=== PATIENT | female | born 1990 | race Caucasian/White ===

== ENCOUNTER 2018-12-19 11:56 | Inpatient (IN) ==
[2018-12-19] MEDS ORDERED: Ringers Solution, Lactated 2,000 ML ONE (13:04)
[2018-12-19] MEDS ORDERED: Naloxone 0.4 MG/ML INJ IVP PRN ×2 (13:16→18:15)
[2018-12-19] MEDS ORDERED: CeFAZolin Premix DUPLEX 2,000 MG/50 ML BAG IVPB ONE (13:16)
[2018-12-19] MEDS ORDERED: Famotidine 20 MG/2 ML VIAL IVP ONE (13:16)
[2018-12-19] MEDS ORDERED: Ringers Solution, Lactated 1,000 ML IVC ONE (13:16)
[2018-12-19] MEDS ORDERED: Oxytocin 20 units/ LR 1000 mL 20 UNIT/1,000 ML BAG IVC ONE (13:16)
[2018-12-19] MEDS ORDERED: Metoclopramide 10 MG/2 ML VIAL IVP ONE (13:16)
[2018-12-19] MEDS ORDERED: Famotidine 20 MG/2 ML VIAL IVP PRN (13:16)
[2018-12-19] MEDS ORDERED: Propofol 500 MG/50 ML INFUS..BTL ONE (13:19)
[2018-12-19] MEDS ORDERED: *HR* Morphine Sulfate/PF 10 MG/10 ML AMPUL ONE (13:25)
[2018-12-19] MEDS ORDERED: *HR* FentaNYL (PF) 100 MCG/2 ML VIAL ONE (13:25)
[2018-12-19] MEDS ORDERED: Lidocaine -MPF 1% 5 ML AMPUL ONE (13:28)
[2018-12-19] MEDS ORDERED: Bupivacaine/PF 0.75% in Dex 2 ML AMPUL INFILT ONE (13:28)
[2018-12-19] MEDS ORDERED: Ringers Solution, Lactated 1,000 ML IVC SCH ×2 (13:30→18:15)
[2018-12-19] MEDS ORDERED: Oxytocin 20 units/ LR 1000 mL 20 UNIT/1,000 ML BAG IVC SCH ×2 (13:30→18:15)
--- NOTE | 2018-12-19 13:37 | Anesthesia Evaluation PreOp ---
Date of Encounter: 12/19/18 Time of Encounter: 13:26 - Past History Planned Operation: G1 Cardiac History: Denies any Significant Hx Pulmonary History: Denies Any Significant HX GEARMAN History: Denies Any Significant HX Other Medical History: Other (MO, GASTRIC SLEEVE IN PAST LOST >250BLS) Anesthesia History: No Prior Anesthetic Complications, Past Anesthesia Alcohol Use: none Drug use: none Medications and Allergies Pnv95/Ferrous Fumarate/FA [ Formula] 1 each PO DAILY #30 tablet 05/16/18 [Rx] Acetaminophen [Tylenol] 500 mg PO BID 11/06/18 [History] Ondansetron HCl [Zofran] 4 mg PO Q8HR PRN 11/06/18 [History] Allergy/AdvReac Type Severity Reaction Status Date / Time latex Allergy Rash Verified 09/29/18 15:32 Sulfa (Sulfonamide Allergy Rash Verified 09/29/18 15:32 Antibiotics) tetracycline [Tetracycline] Allergy Hives Verified 09/29/18 15:32 codeine AdvReac Swelling Verified 09/29/18 15:32 of the Eye Anesthesia Exam - HEENT Pupil (Motor): Pupils equal Mallampati: II Teeth: Normal Oral Opening: Greater than 3 - GEARMAN LOC: Oriented GEARMAN Motor: Normal RUE, Normal LUE, Normal RLE, Normal LLE, Normal Face GEARMAN Sensory: Normal: RUE, LUE, RLE, LLE, Face - Cardiac Rhythm: Regular Murmur: None - Pulmonary Breath Sounds: bilateral Clear Respiratory Effort: Symmetrical Anesthesia Assess/Plan ASA Score: 2 Level of consciousness: Cooperative, Oriented Anesthetic Plan: General, Spinal, Epidural Monitoring Plan: Standard Monitors Recovery Plan: PACU
[2018-12-19 13:45] LABS: Basophils % 0.1 %; Eosinophils % 0.3 %; Hematocrit 41.6 % (35.3-44.9); Hemoglobin 13.9 g/dL (11.5-15.4); Immature Granulocytes % 0.5 % (0-4); Lymphocytes % 15.2 %; Mean Corpuscular HGB Conc 33.4 g/dL (31.6-35.5); Mean Corpuscular Hemoglobin 31.2 pg (28.0-33.3); Mean Corpuscular Volume 93.3 fL (83.0-100.0); Monocytes # 0.6 K/mcL (0.0-1.3); Monocytes % 4.2 %; Neutrophils # 10.7 K/mcL (1.6-8.9); Platelet Count 156 K/mcL (140-400); Red Blood Count 4.46 M/mcL (3.82-4.97); Red Cell Distribution Width 12.2 % (11.5-14.5); Segmented Neutrophils % 79.7 %
[2018-12-19] MEDS ORDERED: *HR* Oxytocin 10 UNIT/ML VIAL IM ONE ×2 (13:47→14:14)
[2018-12-19] MEDS ORDERED: *HR* Succinylcholine 200 MG/10 ML VIAL IVP ONE (14:07)
[2018-12-19] MEDS ORDERED: Ringers Solution, Lactated 1,000 ML ONE (14:14)
--- NOTE | 2018-12-19 15:32 | OB/GYN History & Physical ---
Date of Encounter: 12/19/18 Time of Encounter: 15:28 Assessment and Plan (1) 37 weeks gestation of Current visit: Yes Status: Acute Patient's 37 weeks with oligo dimness seen in office nonstress testing however prolonged deceleration lasting approximate 4 minutes to the 80s. She was sent to labor and delivery however prior to starting any medications to cause contractions she was again having decelerations therefore decision was m marc to proceed with section she is aware operative risks and signed appropriate consent. (2) Oligohydramnios Current visit: Yes Status: Acute Patient with oligomenorrhea in etiology she had questionable leakage fluid sugg estive morning has been wearing a pad however on sterile speculum exam showed postdates she did not see pulling it was nitrazine positive but fern negative. Qualifiers: Trimester: third trimester Qualified Code(s): O41.03X0 - Oligohydramnios, t hird trimester, not applicable or unspecified (3) heart rate decelerations affecting management of mother Current visit: Yes Status: Acute History of Present Illness Chief complaint: Oligohydramnios, decelerations HPI: Ms. Lora is a 28 year old female female at 37w2d gestation presents to labor and delivery today after being seen in office and found to have prolonged deceleration on nonstress testing ultrasound showed PRANAV of 4.7 cm was umbilicus and removed decision made with induction of labor. She is brought to labor and delivery or during routine monitoring she begin having recurrent prolonged decelerations. She was not on any medications cervix is unfavorable and after discussed with patient options decision was made to proceed with section. She is aware operative risks and signed appropriate consent. Past Med Surg Social Fam HX - Past Medical History Source: patient, old records reviewed Medical history: asthma, migraine, other Additional medical history: Hemiplegic Migraines Psychiatric history: anxiety, bipolar, depression - Past Surgical History Additional surgical history: gastric sleeve 06/2016. 06/2010 left leg surgery - Social History Smoking Status: Never smoker Smokeless Tobacco Status: No Alcohol use: none Drug use: none - Family History Mother Living Status: Still Living Hx Family Cardiac Disorders: Yes (HTN) Hx Family Respiratory Disorders: No Hx Family Cancer: Yes (skin) Hx Family GI Disorders: No Hx Family Endocrine Disorder: No Hx Family Neuromuscular Disorders: No Hx Family Neurologic Disorders: No Hx Family HEENT Disorders: No Hx Family Autoimmune Disorders: No Obstetrical History - Pregnancies : 1 Medications and Allergies Pnv95/Ferrous Fumarate/FA [ Formula] 1 each PO DAILY #30 tablet 05/16/18 [Rx] Acetaminophen [Tylenol] 500 mg PO BID 11/06/18 [History] Ondansetron HCl [Zofran] 4 mg PO Q8HR PRN 11/06/18 [History] Allergy/AdvReac Type Severity Reaction Status Date / Time latex Allergy Rash Verified 09/29/18 15:32 Sulfa (Sulfonamide Allergy Rash Verified 09/29/18 15:32 Antibiotics) tetracycline [Tetracycline] Allergy Hives Verified 09/29/18 15:32 codeine AdvReac Swelling Verified 09/29/18 15:32 of the Eye Exam - Constitutional Constitutional: well developed, well nourished - HEENT HEENT: EOMI, PERRL - Neck Neck exam: full ROM - Lungs Respiratory exam: CTAB - Cardiovascular Cardiovascular exam: RRR - Abdomen Abdomen: Present: gravid - Extremities Extremities exam: full ROM Deep Tendon Reflex Grade: 2+ Normal - Cervix Dilation: 2 Effacement: 80 Station: -2 - Uterus Uterus exam: Present: enlarged Results Result Diagrams: 12/19/18 13:02 Abnormal lab results WBC 13.4 K/mcL (4.3-11.1) H 12/19/18 13:02 Neutrophils # 10.7 K/mcL (1.6-8.9) H 12/19/18 13:02 All other labs normal. - VTE Reasons for not Prescribing Prophylaxis: Treatment not Indicated - Low risk for VTE
--- NOTE | 2018-12-19 15:43 | OB/GYN Procedure Note ---
Section - Date of procedure: 12/19/18 Preop diagnosis: category 2 FHT tracing, other (Oligohydramnios desires primary section secondary to nonreassuring heart rate tracing) Post-op diagnosis: same Procedure: section, primary low transverse Surgeon: Sriram Valdivia Blood Loss: 400 Was there an assistant operator present: No Anesthesiologist: Mane Nichols Worm Farmer: Titi Elaine Anesthesia Type: Spinal Disposition: L&D Recovery Room Specimens: Placenta - Infant (s) A Delivery Date: 12/19/18 Infant Delivery Time: 14:05 Presentation: vertex Gender: Male Viability: Viable Pounds: 7 Ounces: 9 at 1 minute: 8 at 5 minutes: 8 Shoulder Dystocia: not encountered Specimens collected: cord blood Placenta: spontaneous Cord: 3 umbilical vessels - Narrative Narrative: Patient was taken operating room where spinal anesthesia was administered. She was prepped draped in usual sterile fashion. Bladder was drained of clear urine. Scalp was used to make Pfannenstiel skin incision which was sharply taken down the rectus fascia. Fascia was incised midline fascial incision was extended bilaterally. Plane is developed between rectus muscle rectus fascia superiorly and distally. Peritoneum was entered bluntly. Bladder blade was placed and bladder flap was developed on the left lower uterine segment. Scalpel was used to make a low transverse uterine incision uterus was entered bluntly and infant was delivered from vertex presentation. There was small amount of clear fluid noted. Cord was clamped cut and was handed nurse personnel who were in attendance where weight was found to be 7 lbs. 9 oz. and Apgars were 8 at 1 minute and 8 at 5 minutes. Placenta spontaneously were normal placenta with three-vessel cord. Uterus was massaged to firm. Uterus was closed 0 Vicryl in running lock stitch. Additional performed hemostasis was ensured. Fascia was closed 0 Vicryl running manner. Again irrigation performed hemostasis was ensured. Skin edges reapproximated with 4-0 Vicryl. All sponge and instruments counts are correct patient was taken recovery in good condition.
[2018-12-19] MEDS ORDERED: *HR* Nalbuphine 10 MG/ML AMPUL IV STA (17:43)
[2018-12-19] MEDS ORDERED: Acetaminophen IV 1,000 MG/100 ML INFUS..BTL IVPB SCH (18:00)
[2018-12-19] MEDS ORDERED: Ibuprofen 600 MG TABLET PO PRN (18:15)
[2018-12-19] MEDS ORDERED: Simethicone 80 MG TAB.CHEW PO PRN (18:15)
[2018-12-19] MEDS ORDERED: Metoclopramide 10 MG/2 ML VIAL IVP PRN (18:15)
[2018-12-19] MEDS ORDERED: Sennosides 8.6 MG TABLET PO PRN (18:15)
[2018-12-19] MEDS ORDERED: Rho Immune Globulin 1,500 UNIT SYRINGE IM ONE (18:15)
--- NOTE | 2018-12-19 22:33 | Anesthesia Evaluation Post Op ---
Date of Encounter: 12/19/18 Time of Encounter: 22:32 - Vital Signs Vital Signs: Vital Signs/O2 Sat, Most Current Temp Pulse Resp BP Pulse Ox 98.6 F 62 16 116/60 99 12/19/18 20:50 12/19/18 20:50 12/19/18 20:50 12/19/18 20:50 12/19/18 20:50 - Lungs Lungs: Clear Ascult./Percussion - Airway Airway: Non-obstructed - Cardiovascular Regular Rate - Mental Status Mental Status: Alert & Oriented, Answers Appropriately - Pain Pain Scale: 6 (being treated with pain medication) - Nausea Vomiting Nausea Vomiting: Not Present - Hydration Hydration: Tolerates oral liquids, Mendes catheter - Discharge PostOp Status: Transfer Patient to floor
[2018-12-20] MEDS: Acetaminophen 325 MG TABLET PO PRN ×2 (02:03→11:52)
[2018-12-20 03:58] LABS: Basophils % 0.2 %; Eosinophils # 0.1 K/mcL (0.0-0.6); Eosinophils % 0.5 %; Hematocrit 33.4 % (35.3-44.9); Immature Granulocytes % 0.4 % (0-4); Lymphocytes # 1.4 K/mcL (0.6-4.6); Lymphocytes % 12.5 %; Mean Corpuscular HGB Conc 34.4 g/dL (31.6-35.5); Mean Platelet Volume 11.2 fL (9.4-12.4); Monocytes # 0.5 K/mcL (0.0-1.3); Neutrophils # 9.5 K/mcL (1.6-8.9); Platelet Count 113 K/mcL (140-400); Red Blood Count 3.71 M/mcL (3.82-4.97); Red Cell Distribution Width 12.3 % (11.5-14.5); Segmented Neutrophils % 82.4 %
[2018-12-20 04:00] LABS: Hemoglobin 11.5 g/dL (11.5-15.4)
[2018-12-20] MEDS: *HR* OxyCODONE/APAP 5/325 TABLET PO PRN ×2 (08:52→17:07)
--- NOTE | 2018-12-20 09:10 | OB/GYN Progress Note ---
Date of Encounter: 12/20/18 Time of Encounter: 09:07 - Assessment and Plan (1) S/P section Current Visit: Yes Status: Acute Mendes removed this am. Pt unable to void. She tolerated sitting on side of bed but became dizzy with loss of vision and hearing upon standing. This has now occurred twice. Her lochia is absent at this time. Fundus 2 above. Stat CBC and chem ordered. Will consider pelvic exam if H&H dropping. (2) Dizziness Current Visit: Yes Status: Acute (3) Breast feeding status of mother Current Visit: Yes Status: Acute Subjective - Subjective Patient reports: dizzy ambulation, pain well controlled, appetite poor, no voiding normally, no nauseated : doing well Objective - Vital Signs Latest vital signs: Vital Signs Temp Pulse Resp BP Pulse Ox 12/20/18 08:04 98.0 F 63 14 99/48 97 12/20/18 05:30 97.8 F 69 18 104/47 96 12/20/18 05:06 56 16 95/47 95 12/20/18 04:49 98.4 F 72 16 105/55 98 12/20/18 00:45 98.4 F 64 16 100/42 99 12/19/18 20:50 98.6 F 62 16 116/60 99 12/19/18 19:30 98.6 F 68 18 113/68 100 12/19/18 18:30 98.1 F 63 14 104/69 100 12/19/18 18:04 97.7 F 60 16 114/56 99 12/19/18 17:29 97.2 F L 56 14 95/46 97 Intake and Output 12/19/18 12/20/18 12/20/18 23:59 07:59 15:59 Other: Weight 103.8 kg - Exam Lungs: bilateral: normal Chest: Normal S1, Normal S2 Extremities: Present: edema (left leg with 2+ edema, right normal, pt reports this is normal at baseline and no change today, no erythema or warmth) Abdomen: Present: soft, tenderness (appropriately tender) Incision: Present: dressed (JAC dry and intact) Uterus: Present: firm Fundal Height: 2 (2 above U) Comments: no lochia. CBC stat. Will consider pelvic exam if H&H significantly lower. - Labs Labs: Laboratory Results - last 24 hr 12/19/18 12/20/18 13:02 03:09 WBC 13.4 H 11.6 H RBC 4.46 3.71 L Hgb 13.9 11.5 D Hct 41.6 33.4 L MCV 93.3 90.0 MCH 31.2 31.0 MCHC 33.4 34.4 RDW 12.2 12.3 Plt Count 156 113 L MPV 11.0 11.2 Immature Gran % 0.5 0.4 Seg Neutrophils % 79.7 82.4 Lymphocytes % 15.2 12.5 Monocytes % 4.2 4.0 Eosinophils % 0.3 0.5 Basophils % 0.1 0.2 Neutrophils # 10.7 H 9.5 H Lymphocytes # 2.0 1.4 Monocytes # 0.6 0.5 Eosinophils # 0.0 0.1 Basophils # 0.0 0.0
[2018-12-20 09:21] LABS: Basophils % 0.2 %; Eosinophils # 0.1 K/mcL (0.0-0.6); Eosinophils % 0.5 %; Hematocrit 38.1 % (35.3-44.9); Hemoglobin 12.6 g/dL (11.5-15.4); Immature Granulocytes % 0.6 % (0-4); Lymphocytes # 0.8 K/mcL (0.6-4.6); Lymphocytes % 6.6 %; Mean Corpuscular HGB Conc 33.1 g/dL (31.6-35.5); Mean Corpuscular Hemoglobin 30.9 pg (28.0-33.3); Mean Corpuscular Volume 93.4 fL (83.0-100.0); Mean Platelet Volume 10.7 fL (9.4-12.4); Monocytes # 0.5 K/mcL (0.0-1.3); Monocytes % 3.8 %; Neutrophils # 11.2 K/mcL (1.6-8.9); Platelet Count 125 K/mcL (140-400); Red Blood Count 4.08 M/mcL (3.82-4.97); Red Cell Distribution Width 12.3 % (11.5-14.5); Segmented Neutrophils % 88.3 %
[2018-12-20] MEDS: Prenatal Vit/FA 1 EACH TABLET PO SCH (09:34)
[2018-12-20 09:40] LABS: BUN/Creatinine Ratio 13 (6-26); Blood Urea Nitrogen 9 mg/dL (6-20); Calcium 8.6 mg/dL (8.6-10.3); Carbon Dioxide 25 mEq/L (23-29); Chloride 103 mEq/L (98-107); Glucose 127 mg/dL (70-105); Osmolality,Calculated 280 (280-300); Potassium 3.7 mEq/L (3.5-5.1); Sodium 135 mEq/L (136-145); eGFR For Non-African Americans > 60 (> 60)
[2018-12-20] MEDS ORDERED: Ringers Solution, Lactated 500 ML IVC ONE (12:44)
[2018-12-20] MEDS: Ondansetron 4 MG/2 ML VIAL IVP PRN ×2 (13:49→20:49)
[2018-12-20] MEDS ORDERED: Ondansetron 4 MG/2 ML VIAL IVP PRN (20:06)
[2018-12-20] MEDS: Ketorolac 30 MG/ML VIAL IVP SCH (20:49)
[2018-12-21] MEDS: Ketorolac 30 MG/ML VIAL IVP SCH ×3 (02:40→15:28)
[2018-12-21] MEDS: Prenatal Vit/FA 1 EACH TABLET PO SCH (09:23)
[2018-12-21] MEDS ORDERED: Lanolin 7 G OINT...G. TP PRN (10:08)
--- NOTE | 2018-12-21 11:13 | OB/GYN Progress Note ---
Date of Encounter: 12/21/18 Time of Encounter: 11:11 - Assessment and Plan (1) S/P section Current Visit: Yes Status: Acute S/P day 2 Continue routine /Post op care. Meeting appropriate milestones. Anticipate discharge home tomorrow. POC per consult with Dr. Solorzano Subjective - Subjective Interval history: Patient states feeling alright Bleeding light Pain controlled with medication without difficulty Passing gas Patient reports: appetite normal, voiding normally, pain well controlled, ambulating normally [place]: doing well Objective - Vital Signs Latest vital signs: Vital Signs Temp Pulse Resp BP Pulse Ox 12/21/18 04:10 98.6 F 75 14 115/65 96 12/20/18 21:35 98.8 F 64 16 122/75 98 12/20/18 17:35 98.4 F 74 16 117/74 98 12/20/18 12:39 98.7 F 75 14 94/54 98 Intake and Output 12/20/18 12/21/18 12/21/18 23:59 07:59 15:59 Intake Total 840 / 840 Output Total 3300 / 3300 400 / 400 Balance -2460 / -2460 -400 / -400 Intake: Oral 840 / 840 Output: Urine 3300 / 3300 400 / 400 Other: Weight 96.207 kg Patient Weight 12/21/18 23:59 Weight 96.207 kg - Exam Lungs: bilateral: normal Chest: Normal S1, Normal S2 Extremities: Present: normal Abdomen: Present: normal appearance, soft. Absent: gravid Incision: Present: normal, dry, intact Uterus: Present: normal, firm Fundal Height: 0 (U)
[2018-12-21] MEDS: Ibuprofen 600 MG TABLET PO PRN (22:04)
[2018-12-22 08:46] VITALS: BP 114/80
[2018-12-22] MEDS: Prenatal Vit/FA 1 EACH TABLET PO SCH (08:52)
[2018-12-22] MEDS: Ibuprofen 600 MG TABLET PO PRN (08:52)
--- NOTE | 2018-12-22 10:24 | Discharge Summary ---
Date of Encounter: 12/22/18 Time of Encounter: 10:21 - Discharge Diagnosis (1) S/P section Priority: Primary Status: Acute Comments: Stable, meeting all PP milestones, tolerates diet, passing flatus, desires discharge. - Discharge Medications Prescriptions: New OxyCODONE/APAP 5/325 [Percocet 5/325 MG] 1 each PO Q4HR PRN 5 Days #20 tablet PRN Reason: Moderate pain 4-6 Acetaminophen [Tylenol] 650 mg PO Q6HR PRN tablet PRN Reason: Mild Pain (1-3) Ibuprofen [Motrin] 600 mg PO Q6HR PRN #60 tablet PRN Reason: mild to moderate pain/cramping Calcium Carbonate [Tums] 1,000 mg PO Q4H PRN #0 tab.chew PRN Reason: Heartburn Docusate [Colace] 100 mg PO BID #20 capsule Omeprazole [PriLOSEC] 40 mg PO BIDAC #60 capsule.dr Camara [Gas-X] 80 mg PO TID PRN tab.chew PRN Reason: Dyspepsia Lanolin [Lansinoh] 1 appl TP TID PRN oint...g. PRN Reason: Nipple tenderness Continue Pnv95/Ferrous Fumarate/FA [ Formula Tablet] 1 each PO DAILY #30 tablet Acetaminophen [Tylenol] 500 mg PO BID Discontinued Ondansetron HCl [Zofran] 4 mg PO Q8HR PRN PRN Reason: Nausea Home Medications: Pnv95/Ferrous Fumarate/FA [ Formula Tablet] 1 each PO DAILY #30 tablet 05/16/18 [Rx] Acetaminophen [Tylenol] 500 mg PO BID 11/06/18 [History] Acetaminophen [Tylenol] 650 mg PO Q6HR PRN tablet 12/22/18 [Rx] Calcium Carbonate [Tums] 1,000 mg PO Q4H PRN #0 tab.chew 12/22/18 [Rx] Docusate [Colace] 100 mg PO BID #20 capsule 12/22/18 [Rx] Ibuprofen [Motrin] 600 mg PO Q6HR PRN #60 tablet 12/22/18 [Rx] Lanolin [Lansinoh] 1 appl TP TID PRN oint...g. 12/22/18 [Rx] Omeprazole [PriLOSEC] 40 mg PO BIDAC #60 capsule. 12/22/18 [Rx] OxyCODONE/APAP 5/325 [Percocet 5/325 MG] 1 each PO Q4HR PRN 5 Days #20 tablet 12/22/18 [Rx] Simethicone [Gas-X] 80 mg PO TID PRN tab.chew 12/22/18 [Rx] Allergies/Adverse Reactions: 3 Allergy/AdvReac Type Severity Reaction Status Date / Time latex Allergy Rash Verified 09/29/18 15:32 Sulfa (Sulfonamide Allergy Rash Verified 09/29/18 15:32 Antibiotics) tetracycline [Tetracycline] Allergy Hives Verified 09/29/18 15:32 codeine AdvReac Swelling Verified 09/29/18 15:32 of the Eye Data Procedures and tests throughout hospitalization: Laboratory Tests 12/19/18 12/19/18 12/20/18 13:02 17:17 03:09 WBC 13.4 H 11.6 H RBC 4.46 3.71 L Hgb 13.9 11.5 D Hct 41.6 33.4 L MCV 93.3 90.0 MCH 31.2 31.0 MCHC 33.4 34.4 RDW 12.2 12.3 Plt Count 156 113 L MPV 11.0 11.2 Immature Gran % 0.5 0.4 Seg Neutrophils % 79.7 82.4 Lymphocytes % 15.2 12.5 Monocytes % 4.2 4.0 Eosinophils % 0.3 0.5 Basophils % 0.1 0.2 Neutrophils # 10.7 H 9.5 H Lymphocytes # 2.0 1.4 Monocytes # 0.6 0.5 Eosinophils # 0.0 0.1 Basophils # 0.0 0.0 Sodium Potassium Chloride Carbon Dioxide BUN Creatinine Est GFR ( Amer) Est GFR (Non-Af Amer) BUN/Creatinine Ratio Glucose Calculated Osmolality Calcium Baby's Blood Type B RH NEGATIVE Mother's Blood Type B RH NEGATIVE Rhogam Indicated NO 12/20/18 12/20/18 09:08 09:08 WBC 12.7 H RBC 4.08 Hgb 12.6 Hct 38.1 MCV 93.4 MCH 30.9 MCHC 33.1 RDW 12.3 Plt Count 125 L MPV 10.7 Immature Gran % 0.6 Seg Neutrophils % 88.3 Lymphocytes % 6.6 Monocytes % 3.8 Eosinophils % 0.5 Basophils % 0.2 Neutrophils # 11.2 H Lymphocytes # 0.8 Monocytes # 0.5 Eosinophils # 0.1 Basophils # 0.0 Sodium 135 L Potassium 3.7 Chloride 103 Carbon Dioxide 25 BUN 9 Creatinine 0.67 Est GFR ( Amer) > 60 Est GFR (Non-Af Amer) > 60 BUN/Creatinine Ratio 13 Glucose 127 H Calculated Osmolality 280 Calcium 8.6 Baby's Blood Type Mother's Blood Type Rhogam Indicated Date of admission: 12/19/18 11:56 Primary care physician: Rimma Garcia Discharging clinician: Sherita Sandra Anticipated date of discharge: 12/22/18 - Patient Status Disposition: Home, Self-Care Condition: Good Functional capacity at discharge: independent ambulation Overall status at discharge: patient is back to baseline - Discharge Instructions Follow Up With: Rimma Garcia CNP [Primary Care Provider] - Sriram Cancino MD [Partnered Physician] - - Diet and Activity Activity: resume usual activities as tolerated Diet: regular diet Hospital Course Reason for admission: section Delivery: section Episiotomy: none Laceration: none Other procedures: none complications: none Discharge diagnosis: IUP at term delivered baby: male Hospital course: Date of procedure: 12/19/18 Preop diagnosis: category 2 FHT tracing, other (Oligohydramnios desires primary section secondary to nonreassuring heart rate tracing) Post-op diagnosis: same Procedure: section, primary low transverse Surgeon: Sriram Cancino Quantitated Blood Loss: 400 Was there an human resources benefits assistant present: No Anesthesiologist: Mane Nichols Survey Instrument Operator: Titi Elaine Anesthesia Type: Spinal Disposition: L&D Recovery Room Specimens: Placenta - Infant (s) A Infant Delivery Date: 12/19/18 Delivery Time: 14:05 Presentation: vertex Gender: Male Viability: Viable Pounds: 7 Ounces: 9 at 1 minute: 8 at 5 minutes: 8 Shoulder Dystocia: not encountered Specimens collected: cord blood Placenta: spontaneous Cord: 3 umbilical vessels Stable in PP and appropriate for discharge, OARRS reviewed Time Attestation: Total time spent providing and/or coordinating discharge services: Time Spent: Less than 30 minutes - VTE Reasons for not Prescribing Prophylaxis: Treatment not Indicated - Low risk for VTE Documentation of Mechanical Device: Intermittent pneumatic compression device Exam - Constitutional Vitals: Temp Pulse Resp BP Pulse Ox 98.5 F 58 16 114/80 99 12/22/18 07:30 12/22/18 07:30 12/22/18 07:30 12/22/18 07:30 12/21/18 20:15 General appearance IM: A&O X 3 - Respiratory Respiratory exam: Present: CTAB - Cardiovascular Cardiovascular exam IM: Present: RRR - GI/Abdominal GI/Abdominal exam IM: soft Incision: dressed (JAC) - Uterine Tone: Firm Uterus Position: At Umbilicus - Extremities Exam Extremities exam IM: Present: normal capillary refill, normal inspection - Neurological Exam Neurological exam: normal gait, oriented X3 - Psychiatric Additional comments: reports good mood
== END 2018-12-22 14:04 | disposition home or self-care (01) | DRG 788 ==
LOC: 1NENULAB 11:56 → 1NENUOBS 17:26
PROVIDERS: ADMIT Advanced Practice Midwife; ATTEND Advanced Practice Midwife

== ENCOUNTER 2020-01-31 14:24 | Observation (INO) ==
[2020-01-31] MEDS ORDERED: Ondansetron 4 MG/2 ML VIAL IVP ONE (15:01)
[2020-01-31] MEDS ORDERED: 0.9 % Sodium Chloride 1,000 ML IVC STA (15:01)
[2020-01-31 15:41] LABS: Basophils % 0.2 %; Eosinophils # 0.1 K/mcL (0.0-0.6); Eosinophils % 0.9 %; Hematocrit 45.5 % (35.3-44.9); Hemoglobin 14.3 g/dL (11.5-15.4); Immature Granulocytes % 0.3 % (0-4); Lymphocytes # 1.6 K/mcL (0.6-4.6); Lymphocytes % 25.5 %; Mean Corpuscular HGB Conc 31.4 g/dL (31.6-35.5); Mean Corpuscular Hemoglobin 28.8 pg (28.0-33.3); Mean Corpuscular Volume 91.5 fL (83.0-100.0); Mean Platelet Volume 9.6 fL (9.4-12.4); Monocytes # 0.3 K/mcL (0.0-1.3); Monocytes % 4.2 %; Neutrophils # 4.4 K/mcL (1.6-8.9); Platelet Count 247 K/mcL (140-400); Red Blood Count 4.97 M/mcL (3.82-4.97); Red Cell Distribution Width 12.7 % (11.5-14.5); Segmented Neutrophils % 68.9 %; White Blood Count 6.4 K/mcL (4.3-11.1)
[2020-01-31 15:49] LABS: RBC,Urine 0-3 per hpf (0-3); Squamous Epithelial Cell,Urine Many per lpf (None-Few)
[2020-01-31] MEDS ORDERED: *HR* FentaNYL (PF) 100 MCG/2 ML VIAL IVP ONE (15:49)
[2020-01-31 15:50] LABS: Bacteria,Urine Many per hpf (None-Few); Hyaline Casts,Urine None Seen per lpf (None-Few); Mucus,Urine Few per lpf (Few); Yeast,Urine Many per hpf (None Seen)
[2020-01-31 15:51] LABS: Clarity,Urine Hazy (Clear); Color,Urine Orange (Yellow)
[2020-01-31 16:01] LABS: BUN/Creatinine Ratio 16 (6-26); Blood Urea Nitrogen 16 mg/dL (6-20); Calcium 8.8 mg/dL (8.6-10.3); Carbon Dioxide 30 mEq/L (23-29); Chloride 104 mEq/L (98-107); Glucose 88 mg/dL (70-105); Osmolality,Calculated 281 (280-300); Sodium 135 mEq/L (136-145); eGFR For African Americans > 60 (> 60); eGFR For Non-African Americans > 60 (> 60)
[2020-01-31] MEDS ORDERED: cefTRIAXone 1,000 MG in Water for inj. (sterile) 10 ML IVP ONE (16:08)
[2020-01-31] MEDS ORDERED: Naloxone 0.4 MG/ML INJ IVP PRN (17:06)
[2020-01-31] MEDS ORDERED: *HR* HYDROmorphone 2 MG TABLET PO PRN (17:15)
[2020-01-31] MEDS: Ampicillin/Sulbactam 1,500 MG in 0.9 % Sodium Chloride Mini Bag 100 ML IVPB SCH ×2 (19:25→23:49)
[2020-01-31] MEDS: metroNIDAZOLE 500 MG TABLET PO SCH (20:54)
[2020-01-31] MEDS: Melatonin 3 MG TABLET PO SCH (20:54)
[2020-01-31] MEDS ORDERED: Albuterol 2.5 MG/3 ML NEBULIZER IH PRN (22:00)
[2020-01-31] MEDS: Ondansetron 4 MG/2 ML VIAL IVP PRN (22:13)
[2020-02-01 04:36] LABS: Hematocrit 40.5 % (35.3-44.9); Hemoglobin 12.9 g/dL (11.5-15.4); Immature Granulocytes % 0.2 % (0-4); Lymphocytes % 36.2 %; Mean Corpuscular HGB Conc 31.9 g/dL (31.6-35.5); Mean Corpuscular Hemoglobin 28.7 pg (28.0-33.3); Mean Corpuscular Volume 90.2 fL (83.0-100.0); Mean Platelet Volume 9.8 fL (9.4-12.4); Monocytes % 5.7 %; Platelet Count 205 K/mcL (140-400); Red Blood Count 4.49 M/mcL (3.82-4.97); Red Cell Distribution Width 12.8 % (11.5-14.5); Segmented Neutrophils % 56.5 %; White Blood Count 5.8 K/mcL (4.3-11.1)
[2020-02-01 04:37] LABS: Basophils % 0.2 %; Eosinophils # 0.1 K/mcL (0.0-0.6); Eosinophils % 1.2 %; Lymphocytes # 2.1 K/mcL (0.6-4.6); Monocytes # 0.3 K/mcL (0.0-1.3); Neutrophils # 3.3 K/mcL (1.6-8.9)
[2020-02-01 04:51] LABS: BUN/Creatinine Ratio 17 (6-26); Blood Urea Nitrogen 14 mg/dL (6-20); Calcium 8.5 mg/dL (8.6-10.3); Carbon Dioxide 23 mEq/L (23-29); Chloride 107 mEq/L (98-107); Glucose 85 mg/dL (70-105); Magnesium 1.8 mg/dL (1.6-2.6); Osmolality,Calculated 286 (280-300); Potassium 3.9 mEq/L (3.5-5.1); Sodium 138 mEq/L (136-145); eGFR For African Americans > 60 (> 60); eGFR For Non-African Americans > 60 (> 60)
[2020-02-01] MEDS: Ampicillin/Sulbactam 1,500 MG in 0.9 % Sodium Chloride Mini Bag 100 ML IVPB SCH ×2 (05:45→14:43)
[2020-02-01] MEDS: Ondansetron 4 MG/2 ML VIAL IVP PRN (08:13)
[2020-02-01] MEDS: metroNIDAZOLE 500 MG TABLET PO SCH (08:21)
[2020-02-01] MEDS: ARIPiprazole 5 MG TABLET PO SCH (08:21)
[2020-02-01] MEDS: *HR* Enoxaparin 40 MG/0.4 ML SYRINGE SQ SCH (08:22)
[2020-02-01] MEDS: Cholecalciferol (D-3) 1,000 UNIT (25MCG) TABLET PO SCH (08:23)
[2020-02-01] MEDS ORDERED: COPPER IUD IY SCH (09:00)
[2020-02-01] MEDS ORDERED: Fluconazole 100 MG TABLET PO SCH (09:00)
[2020-02-01] MEDS ORDERED: Fluconazole 200 MG/100 ML 100 MG/50 ML BAG IVPB SCH (09:00)
[2020-02-01] MEDS: MetroNIDAZOLE 500 MG/100 ML 500 MG/100 ML BAG IVPB SCH ×2 (10:08→17:12)
[2020-02-01] MEDS ORDERED: Vancomycin 1,500 MG/265 ML IV.SOLN IVPB SCH ×2 (16:00)
[2020-02-01] MEDS ORDERED: Famotidine 20 MG/2 ML VIAL IVP ONE (17:02)
[2020-02-01] MEDS ORDERED: MethylPREDNISolone 40 MG/ML VIAL IVP ONE (17:02)
[2020-02-01] MEDS: Melatonin 3 MG TABLET PO SCH (21:21)
[2020-02-01] MEDS ORDERED: Vancomycin 1,250 MG/262.5 ML IV.SOLN IVPB SCH (22:00)
[2020-02-02] MEDS: MetroNIDAZOLE 500 MG/100 ML 500 MG/100 ML BAG IVPB SCH ×3 (00:04→15:37)
[2020-02-02] MEDS: *HR* Enoxaparin 40 MG/0.4 ML SYRINGE SQ SCH (06:09)
[2020-02-02] MEDS: Ondansetron 4 MG/2 ML VIAL IVP PRN (06:11)
[2020-02-02 07:40] LABS: Basophils % 0.1 %; Hematocrit 44.7 % (35.3-44.9); Immature Granulocytes % 0.5 % (0-4); Lymphocytes % 6.5 %; Mean Corpuscular HGB Conc 32.9 g/dL (31.6-35.5); Mean Corpuscular Hemoglobin 28.8 pg (28.0-33.3); Mean Corpuscular Volume 87.5 fL (83.0-100.0); Mean Platelet Volume 10.1 fL (9.4-12.4); Monocytes # 0.3 K/mcL (0.0-1.3); Monocytes % 2.1 %; Neutrophils # 13.8 K/mcL (1.6-8.9); Platelet Count 204 K/mcL (140-400); Red Blood Count 5.11 M/mcL (3.82-4.97); Red Cell Distribution Width 12.2 % (11.5-14.5); Segmented Neutrophils % 90.8 %
[2020-02-02 08:20] LABS: Hemoglobin 14.7 g/dL (11.5-15.4); White Blood Count 15.2 K/mcL (4.3-11.1)
[2020-02-02] MEDS: Cholecalciferol (D-3) 1,000 UNIT (25MCG) TABLET PO SCH (08:30)
[2020-02-02] MEDS: ARIPiprazole 5 MG TABLET PO SCH (08:30)
[2020-02-02] MEDS ORDERED: levoFLOXacin 500 MG/100 ML 500 MG/100 ML BAG IVPB SCH (09:00)
[2020-02-02] MEDS ORDERED: ARIPiprazole 10 MG TABLET PO SCH (09:00)
[2020-02-02] MEDS ORDERED: Cholecalciferol (D-3) 1,000 UNIT (25MCG) TABLET PO SCH (09:00)
[2020-02-02 09:08] LABS: BUN/Creatinine Ratio 15 (6-26); Blood Urea Nitrogen 11 mg/dL (6-20); Calcium 9.5 mg/dL (8.6-10.3); Carbon Dioxide 23 mEq/L (23-29); Chloride 103 mEq/L (98-107); Glucose 112 mg/dL (70-105); Magnesium 1.5 mg/dL (1.6-2.6); Osmolality,Calculated 280 (280-300); Potassium 4.1 mEq/L (3.5-5.1); Sodium 135 mEq/L (136-145); eGFR For African Americans > 60 (> 60); eGFR For Non-African Americans > 60 (> 60)
[2020-02-02] MEDS: levoFLOXacin 500 MG/100 ML 500 MG/100 ML BAG IVPB SCH (09:38)
[2020-02-02] MEDS ORDERED: Sennosides/Docusate Sodium TABLET PO ONE (15:40)
[2020-02-02] MEDS ORDERED: Vancomycin 1,500 MG/265 ML IV.SOLN IVPB SCH (16:00)
[2020-02-02] MEDS: Lactobacillus 1 EACH CAP.SPRINK PO SCH (22:01)
[2020-02-02] MEDS: Melatonin 3 MG TABLET PO SCH (22:01)
[2020-02-03] MEDS: MetroNIDAZOLE 500 MG/100 ML 500 MG/100 ML BAG IVPB SCH ×2 (00:48→08:27)
[2020-02-03 02:41] LABS: Basophils % 0.2 %; Eosinophils % 0.5 %; Hematocrit 38.3 % (35.3-44.9); Immature Granulocytes % 0.2 % (0-4); Lymphocytes # 2.7 K/mcL (0.6-4.6); Lymphocytes % 30.3 %; Mean Corpuscular HGB Conc 32.9 g/dL (31.6-35.5); Mean Platelet Volume 9.7 fL (9.4-12.4); Monocytes # 0.4 K/mcL (0.0-1.3); Monocytes % 4.3 %; Neutrophils # 5.7 K/mcL (1.6-8.9); Platelet Count 217 K/mcL (140-400); Red Blood Count 4.35 M/mcL (3.82-4.97); Red Cell Distribution Width 12.6 % (11.5-14.5); Segmented Neutrophils % 64.5 %; White Blood Count 8.9 K/mcL (4.3-11.1)
[2020-02-03 02:43] LABS: Hemoglobin 12.6 g/dL (11.5-15.4)
[2020-02-03 02:59] LABS: BUN/Creatinine Ratio 19 (6-26); Blood Urea Nitrogen 15 mg/dL (6-20); Calcium 8.4 mg/dL (8.6-10.3); Carbon Dioxide 24 mEq/L (23-29); Chloride 105 mEq/L (98-107); Glucose 87 mg/dL (70-105); Magnesium 1.5 mg/dL (1.6-2.6); Osmolality,Calculated 284 (280-300); Potassium 3.4 mEq/L (3.5-5.1); Sodium 137 mEq/L (136-145); eGFR For African Americans > 60 (> 60); eGFR For Non-African Americans > 60 (> 60)
[2020-02-03] MEDS: *HR* Enoxaparin 40 MG/0.4 ML SYRINGE SQ SCH (06:20)
[2020-02-03] MEDS: Lactobacillus 1 EACH CAP.SPRINK PO SCH (08:28)
[2020-02-03] MEDS: ARIPiprazole 5 MG TABLET PO SCH (08:28)
[2020-02-03] MEDS: Cholecalciferol (D-3) 1,000 UNIT (25MCG) TABLET PO SCH (08:29)
[2020-02-03] MEDS: levoFLOXacin 500 MG/100 ML 500 MG/100 ML BAG IVPB SCH (10:05)
[2020-02-03 10:44] VITALS: BP 120/71
== END 2020-02-03 14:10 | disposition home or self-care (01) ==
LOC: 3ANU 14:24 → EMEROOARM 14:24 → SUATTDRO 16:56 → 3ANU 17:24
PROVIDERS: ADMIT Pharmacist; ATTEND Pharmacist